=== PATIENT | female | born 1990 | race Caucasian/White ===

== ENCOUNTER 2024-10-20 11:26 | Emergency (ER) | payer BC, OTHER ==
[~2024-10-20] VITALS: Ht 167.6 cm; Wt 78.8 kg
[~2024-10-20 11:26] MED LIST: OMEP20TA23 PO; ONDA4TAB6 PO
--- NOTE | 2024-10-20 11:44 | Physician Documentation ---
History of Present Illness Stated Complaint: BOWEL COMPLICATIONS OK to notify your PCP?: Yes Primary Medical Doctor: none Source: patient, family Mode of Arrival: POV Exam Limitations: no limitations HPI Patient is a 34-year-old female that reports in the emergency department for evaluation of right upper quadrant pain x4 days. 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 Patient reports that she has been seen for this many times. Reports that sometimes it self resolves over the course of a day or two this time her symptoms have persisted for five days. Patient reports significant nausea and vomiting x5 days. Reports 5/10 pain currently. Chief Complaint: Abdominal pain Caveat: None Independent Historians: Mother History of Present Illness: Patient is a 34-year-old woman who comes in complaining of right upper quadrant abdominal pain that began one week ago Thursday. That has seven days. Patient has developed nausea and vomiting six days ago. Patient states that she has these episodes frequently. Patient states that it is because of malrotation of her intestines. Patient does smoke marijuana. Review of systems: All systems were reviewed and are negative except for what is indicated in the history of present illness. Past Medical History: Pneumomediastinum, GERD, recurrent abdominal pain with nausea and vomiting Past Surgical History: None Social History: Smokes marijuana, denies tobacco use, denies alcohol or other drug use Medications: Reviewed as documented Nursing Notes Allergies: Reviewed as documented in Nursing Notes Medication Reconciliation Allergies: Coded Allergies: latex (Unverified Allergy, Unknown, 10/20/24) Scheduled Omeprazole Magnesium (Prilosec Otc), 1 TABLET PO DAILY Scheduled PRN Ondansetron Hcl (Zofran), 1 TABLET PO Q6H PRN for nausea/vomiting Prochlorperazine Maleate (Compazine), 1 TAB PO TID PRN for NAUSEA Past Medical History Past Medical History: *GI/HEPATOBILIARY*, Chronic Back Pain Past Surgical History: no surgical history Patient History: Patient reports no known family medical history. Alcohol Use: Rarely Drug Use: marijuana Lives with: Spouse Occupation: employed Review of Systems All Other Systems at this time: Reviewed and Negative ROS Patient denies any other acute symptoms other than above. All other systems are negative Physical Exam Vital Signs: RN Vital Signs have been reviewed: Yes Pulse Oximetry Reflects: adequate oxygenation Physical Exam General Appearance: Mild distress HEENT: Normal OP, moist oral mucosa, PERRL, EOMI Neck: supple, normal ROM, trachea midline Pulmonary: No respiratory distress, CTA, BS equal Cardiac: RRR, no murmur, rub or gallop, GI: nondistended, soft, upper abdominal tenderness, normal bowel sounds, no guarding, no rebound Extremities: normal ROM, no swelling, non-tender Skin: intact, dry, warm, no rashes Neuro: AAOx3, speech is clear, no focal motor weakness Psych: normal affect, good eye contact, no apparent hallucination, normal speech Medical Decision Making Findings Differential diagnosis includes but is not limited to: Cholecystitis, cholelithiasis, choledocholithiasis, gastritis, duodenitis, pancreatitis, bowel obstruction Abdomen and pelvis CT scan without IV contrast, indication: Abdominal pain Impression: 1. No acute pathology in the abdomen or pelvis. Laboratory data independent interpretation: CBC: Unremarkable CMP: Unremarkable Lipase: Normal at 24 Urinalysis: Unremarkable, Ketones positive, RBC 3-10, WBC 0-4, moderate squamous epithelial cells Emergency department course/medical decision-making: Patient presents with the acute nausea vomiting followed by abdominal pain. Patient's abdominal exam is unremarkable. Patient's lab work is unremarkable. No surgical condition identified on the CT scan. CT scan of the abdomen and pelvis is unremarkable. I am suspecting possible cyclic vomiting syndrome. However patient states that this is related to her malrotation of her intestines. There was no evidence of a medical or surgical emergency. Patient was given IV Toradol, IV morphine and IV Zofran initially for her pain and symptoms. Patient had recurrent nausea and was given Compazine 10 mg IV. Test results treatment plan and all the above discussed with the patient and her mother. Patient is stable for discharge. Departure Time of Disposition: 14:46 Disposition: 09 ADMITTED INPATIENT Impression: Primary Impression: Abdominal pain of unknown cause Additional Impression: Nausea and vomiting Qualified Codes: R11.2 - Nausea with vomiting, unspecified Condition: Improved Discharge Instructions: Abdominal Pain, Adult, [id number], Nausea and Vomiting, Adult, [id number] Additional Instructions: THE CAUSE FOR YOUR ABDOMINAL PAIN NAUSEA AND VOMITING WAS NOT FOUND. YOUR CT SCAN OF THE ABDOMEN AND PELVIS WAS NORMAL. FOLLOW UP WITH YOUR PRIMARY CARE DOCTOR. RETURN TO THE ER IF YOUR SYMPTOMS RECUR OR WORSEN. Prescriptions Prochlorperazine Maleate (Compazine) 10 Mg Tablet 1 TAB PO TID PRN for NAUSEA for 30 Days, #15 TAB 0 Refills Prov: KHURRAM HOOPER MD 10/20/24 Education Educated: Patient Educated regarding: diagnosis, treatment, need for follow up Signature Scribe Signature: No Scribe Attestation: No scribe RODNEY HAYES Oct 20, 2024 11:43 KHURRAM HOOPER MD Oct 20, 2024 13:40
[2024-10-20 11:49] VITALS: TEMP 98
[2024-10-20 11:57] LABS: MEAN PLATELET VOLUME 7.3 FL (7.4-10.4); RED CELL DISTRIBUTION WIDTH 12.7 % (11.5-14.5)
[2024-10-20 12:11] LABS: CREATININE 0.93 MG/DL (0.40-0.90); TOTAL CARBON DIOXIDE 27.9 MMOL/L (24-32); eCRCL 79 ML/MIN; eGFR 69 ML/MIN
[2024-10-20 12:24] LABS: LEUKOCYTE ESTERASE ,URINE NEGATIVE (Neg); NITRITES, URINE NEGATIVE (Neg); OCCULT BLOOD,URINE LARGE (Neg)
[2024-10-20 12:25] LABS: URINE HCG NEGATIVE (NEG)
[2024-10-20 12:37] LABS: UA COLLECTION TYPE NON-SPECIFIED
[2024-10-20] MEDS ORDERED: iohexol 300mg/ml 100ml inj. ONE (12:38)
[2024-10-20 12:46] LABS: MUCUS STRANDS FEW /LPF (Neg); SQUAMOUS EPITHELIAL CELL,UR MODERATE /LPF (FEW)
--- NOTE | 2024-10-20 13:00 | RADIOLOGY REPORT ---
CT abdomen and pelvis done with contrast INDICATION: abdominal pain, hx of malrotation;with IV contrast TECHNIQUE: Serial axial images were performed through the abdomen and pelvis and then reformatted in the sagittal and coronal plane. All CT scans at this medical facility are performed using dose modula tion techniques as appropriate to a performed exam including the following: Automated exposure contro l was utilized; adjustment of the MA and/or KvP according to patient size; and use of iterative recon struction technique. FINDINGS: Liver and spleen are normal in size without focal mass. No renal masses, stones or hydronep hrosis. No masses or enlargement of the adrenal glands or pancreas. No biliary dilatation. No gallsto radames. No distention of bowel loops to suggest mechanical obstruction of bowel. The appendix is normal in appearance. No free fluid. Within the pelvis, bladder is smooth walled without stones. Bilateral r enal cysts. No free fluid. IMPRESSION: 1. No acute pathology in the abdomen or pelvis. Computed Tomographic Radiation Dosimetry Report: Total CTDI vol = 19 mGy Total DLP = 907 mGy-cm Low d ose protocols were performed.
[2024-10-20] MEDS: ondansetron/PF 4mg/2ml inj IM ONE (13:08)
[2024-10-20] MEDS: normal saline 1000ML IV soln IVB ONE (13:21)
[2024-10-20] MEDS: ketorolac trometh 15mg/ml vial 15 MG/ML ML IV ONE (13:40)
[2024-10-20] MEDS ORDERED: PROC-8 PO (14:50)
[2024-10-20 15:22] VITALS: BP 132/77; PULSE 77; RESP 15; O2SAT 100
== END 2024-10-20 15:26 | disposition admitted as inpatient to this hospital (09) ==
LOC: ER 11:28
DX: R10.11 Right upper quadrant pain (principal); R11.2 Nausea with vomiting, unspecified; F12.90 Cannabis use, unspecified, uncomplicated; K21.9 Gastro-esophageal reflux disease without esophagitis; Z91.040 Latex allergy status; Z79.899 Other long term (current) drug therapy
CPT/HCPCS: 36415; 74177; 80053; 81001; 81025; 83690; 85025; 96361; 96372; 96374; 96375; 99285; J0780; J1885; J2405; J7030; Q9967